=== PATIENT | female | born 1985 | race Caucasian/White ===

== ENCOUNTER 2024-11-03 22:54 | Emergency (ER) | payer SELFPAY ==
[2024-11-03 23:06] VITALS: BP 126/82
--- NOTE | 2024-11-04 00:36 | ED.GENMED ---
History of Present Illness
General
Chief Complaint: Musculo-Skeletal Complaint
Source: patient
Exam Limitations: none
Time Seen by Provider: 11/04/24 00:23
History of Present Illness
History of Present Illness:
Patient rolled her ankles chasing her kids. No other injury or complaint. Pain with weightbearing.
Past History
Social History
Personal:
Living: with family
Phy Exam
Physical Exam
Physical Exam:
General: Nontoxic appearing in no distress
Skin: Warm and dry, no rash
Neuro: Alert, nontoxic, grossly nonfocal
Psychiatric: Good eye contact and appropriate
Musculoskeletal: Swelling at the right lateral malleolus. No medial tenderness. Foot nontender. Negative fifth metatarsal. No open wound. Achilles intact. Calf nontender. Proximal tib-fib negative. Knee negative.
Course
Orders/Labs/Results
Orders:
Orders
11/03/24 23:09
Ankle, Right 3 view CR [CR Ankle - Right Min 3 Views *] Urgent
Comment:
Reason For Exam: slipped and twisted ankle
11/04/24 00:35
Air Splint Right-Treatment ONCE
Crutches-Treatment ONCE
Vital Signs
Initial and Last Documented VS:
Initial Vital Signs
Temp Pulse Resp BP Pulse Ox
98.6 F 78 16 126/82 97
11/03/24 23:06 11/03/24 23:06 11/03/24 23:06 11/03/24 23:06 11/03/24 23:06
Last Documented Vital Signs
Temp Pulse Resp BP Pulse Ox
98.6 F 78 16 126/82 97
11/03/24 23:06 11/03/24 23:06 11/03/24 23:06 11/03/24 23:06 11/03/24 23:06
MDM/Problems Addressed
Differential Diagnosis Includes:
Ankle sprain. No fracture. Conservative management and orthopedic follow-up
*Radiology
Radiology exam reviewed: preliminary read by ED provider (Negative)
*Pulse Oximetry
SaO2: 97
Oxygen Mode of Delivery: Room air
Patient hypoxic: no
*Critical Care Note
Total Time (30-74mins, 75-104mins- exclusive of procedures): Not Applicable
ED Attending Note
-
Portions of this chart may have been created with voice recognition software.� Occasional wrong word or��sound alike� substitutions may have occurred due to the inherent limitations of voice recognition software.
Discharge Plan
Departure
Patient Disposition: Home (Routine Discharge)
Date of Disposition: 11/04/24
Time of Disposition: 00:37
Patient with high blood pressure during this ER visit?: Yes
Discharge Problem:
Right ankle sprain
Instructions: Ankle sprain - ED discharge instructions, BLOOD PRESSURE
Prescriptions:
No Action
No Current Medications
0
Referrals:
Cathy Aldana CRNP [Family Provider]
Miguel A Saleem MD [Active, Orthopedics] - Follow up in 5-7 days
Shannan Joe MD [Non-Admitting Privileges, Otology]
Interventions
Interventions:
*Risk Screen - Suicide Last Done: 11/03/24 23:06
*Neglect/Abuse Screening Last Done: 11/03/24 23:06
*ED- Fall Risk Assessment Last Done: 11/03/24 23:06
Discharge Date and Time
Print Language: THAI
== END 2024-11-04 00:53 | disposition home or self-care (01) ==
LOC: EMR 22:54
PROVIDERS: EMERGENCY PHYSICIAN Emergency Medicine; FAMILY PHYSICIAN Nurse Practitioner Family
DX: S93.401A Sprain of unspecified ligament of right ankle, initial encounter (principal); X50.1XXA Overexertion from prolonged static or awkward postures, initial encounter
CPT/HCPCS: 29515; 99283; 73610